=== PATIENT | female | born 1975 | race Caucasian/White ===

== ENCOUNTER 2019-04-01 18:53 | Emergency (ER) | payer OTHER ==
[~2019-04-01] VITALS: Ht 337.8 cm; Wt 99.3 kg
[2019-04-01 19:49] LABS: BASOPHIL % 0.7 % (0-2); PLATELET COUNT 283 x10^3mcL (130-400); RED CELL DISTRIBUTION WIDTH 13.2 % (11.5-14.5)
[2019-04-01 19:51] LABS: CALCIUM 9.1 mg/dL (8.5-10.1); CARBON DIOXIDE 22.4 mmol/L (21-32); CHLORIDE SERUM 105 mmol/L (98-107); CREATININE SERUM 0.9 mg/dL (0.6-1.0); GFR1 > 60 mL/min; GLUCOSE SERUM 120 mg/dL (74-106); POTASSIUM SERUM 3.2 mmol/L (3.5-5.1); SODIUM SERUM 141 mmol/L (136-145)
[2019-04-02 00:54] VITALS: BP 141/91
== END 2019-04-02 00:54 | disposition home or self-care (01) ==
LOC: ED 18:53
PROVIDERS: Emergency Medicine
DX: R51 Headache (principal); I10 Essential (primary) hypertension
CPT/HCPCS: J1200; J2405; J2765; J3010; J3030